=== PATIENT | male | born 1965 | race Caucasian/White ===

== ENCOUNTER 2021-05-02 02:53 | Emergency (ER) | payer OTHER ==
[2021-05-02] MEDS ORDERED: Fluorescein Opthalmic Strip ONE (03:07)
[2021-05-02] MEDS ORDERED: Tetracaine 0.5% PF 4 ML BOT ONE (03:07)
== END 2021-05-02 03:27 ==
LOC: EEVIPCON 02:53 → CSHERS 02:53
DX: H16.133 Photokeratitis, bilateral (principal)
CPT/HCPCS: 99283